=== PATIENT | female | born 1975 | race Two or more races ===

== ENCOUNTER → 2017-06-24 | Outpatient (CLI) | payer OTHER ==
--- NOTE | 2017-06-24 16:55 | RADIOLOGY REPORT (SQ) ---
EXAM DESCRIPTION: KUB/ABDOMEN (SINGLE VIEW) COMPLETED DATE/TIME: 06/24/2017 4:16 pm REASON FOR STUDY: UNABLE TO LOCATED IUD COMPARISON: None. NUMBER OF VIEWS: One view. TECHNIQUE: Supine radiographic image of the abdomen acquired. LIMITATIONS: None. FINDINGS: BOWEL GAS PATTERN: Normal bowel gas pattern. No dilated loops. CALCIFICATIONS: No suspicious calcifications. SOFT TISSUES: No gross mass or suggestion of organomegaly. HARDWARE: There is a radiopaque structure overlying the mid sacrum. This may represent an IUD at an unusual angle. BONES: No acute fracture. No worrisome bone lesions. OTHER: No other significant finding. IMPRESSION: RADIOPAQUE STRUCTURE OVERLYING THE MID SACRUM. THIS MAY REPRESENT AN IUD AT AN UNUSUAL ANGLE. HOWEVER, THIS IS SIGNIFICANTLY MORE SUPERIOR THAN EXPECTED FOR THE LOCATION OF THE UTERUS. T HE X-RAY TECHNOLOGIST THAT PERFORMED THE STUDY CONFIRMED THAT THE PATIENT HAD NO SKIN PIERCING'S AND WAS UNCLOTHED AND THEREFORE NO EXTERNAL ARTIFACT RELATED TO CLOTHING. BECAUSE OF THE UNUSUAL APPEARA NCE AND LOCATION, WOULD RECOMMEND A REPEAT X-RAY AND IF THIS FINDING PERSISTS THEN A NONCONTRAST CT T O BETTER LOCALIZE THIS FINDING. TECHNICAL DOCUMENTATION: JOB ID: [id number] [employer]- All Rights Reserved
== END ==
LOC: RAD 15:56
PROVIDERS: ATTEND Student in an Organized Health Care Education/Training Program
DX: Z30.431 Encounter for routine checking of intrauterine contraceptive device (principal)
CPT/HCPCS: 74018

== ENCOUNTER → 2017-06-29 | Outpatient (CLI) | payer OTHER ==
--- NOTE | 2017-06-29 15:00 | RADIOLOGY REPORT (SQ) ---
EXAM DESCRIPTION: CT ABD/PELVIS NO ORAL OR IV COMPLETED DATE/TIME: 06/29/2017 1:40 pm REASON FOR STUDY: T83.32XD DISPLACEMENT OF INTRAUTERINE CONTRACEPTIVE DEVICE, SUBS T83.32XD DISPLAC EMENT OF INTRAUTERINE CONTRACEPTIVE DEVICE, COMPARISON: Radiographs from 06/26/2017. TECHNIQUE: CT scan of the abdomen and pelvis performed without intravenous or oral contrast. Images reviewed with lung, soft tissue, and bone windows. Reconstructed coronal and sagittal MPR images revi ewed. All images stored on PACS. All CT scanners at this facility use dose modulation, iterative reconstruction, and/or weight based d osing when appropriate to reduce radiation dose to as low as reasonably achievable (ALARA). [facility]: Dose Right [facility]: CareDose [facility]: Dose Right [facility]: Teradose 4D [facility]: Smart [employer] RADIATION DOSE: CT Rad equipment meets quality standard of care and radiation dose reduction techniq ues were employed. CTDIvol: 8.0 mGy. DLP: 420 mGy-cm.mGy. LIMITATIONS: None. FINDINGS: LOWER CHEST: No significant findings. No nodules or infiltrates. NON-CONTRASTED LIVER, SPLEEN, ADRENALS: Evaluation limited by lack of IV contrast. No identified sign ificant masses. PANCREAS: No masses. No peripancreatic inflammatory changes. GALLBLADDER: No identified stones by CT criteria. No inflammatory changes to suggest cholecystitis. RIGHT KIDNEY AND URETER: No solid masses. No significant calcification. No hydronephrosis or hydroure ter. LEFT KIDNEY AND URETER: No solid masses. No significant calcification. No hydronephrosis or hydrouret er. AORTA AND RETROPERITONEUM: No aneurysm. No retroperitoneal masses or adenopathy. BOWEL AND PERITONEAL CAVITY: Large amount of stool throughout the colon. No dilated loops. No abnor mal gas or fluid suggested. APPENDIX: Not visualized. PELVIS, BLADDER, AND ABDOMINAL WALL:The IUD in question is located within the fundus of the uterus. As stated radiographically, it has a horizontal orientation rather than the typical more vertical marissa entation. No suggestion of uterine perforation, however. No pelvic mass or abnormal fluid. Bladder unremarkable. BONES: No significant findings. OTHER: No other significant finding. IMPRESSION: 1. IUD lies within the uterine fundus but is was on [place] positioned within the cavity. No evidence of uterine perforation. TECHNICAL DOCUMENTATION: JOB ID: [id number] Quality ID # [id number]: Final reports with documentation of one or more dose reduction techniques (e.g., Au tomated exposure control, adjustment of the mA and/or kV according to patient size, use of iterative reconstruction technique) 2010 [employer]- All Rights Reserved
== END ==
LOC: RAD 13:29
PROVIDERS: ATTEND Student in an Organized Health Care Education/Training Program
DX: T83.32XD Displacement of intrauterine contraceptive device, subsequent encounter (principal)
CPT/HCPCS: 74176